=== PATIENT | female | born 1945 | race Hispanic/Latino ===

== ENCOUNTER → 2024-04-19 | Outpatient (CLI) | payer OTHER | END | disposition home or self-care (01) | LOC: RAH 08:49 | PROVIDERS: ATTEND Family Medicine | DX: R10.13 Epigastric pain (principal); Z90.49 Acquired absence of other specified parts of digestive tract | CPT/HCPCS: 76700 ==

== ENCOUNTER 2024-06-17 09:52 | Emergency (ER) | payer OTHER ==
[~2024-06-17] VITALS: Ht 154.9 cm; Wt 46.3 kg
[2024-06-17] MEDS: LIDOCAINE HCL 1% 20 ML VIAL ONE (11:16)
[2024-06-17] MEDS: TETANUS/DIPHTHERIA TOXOID [ADULT] 0.5 ML VIAL IM ONE (12:03)
[2024-06-17 12:25] VITALS: BP 154/68; PULSE 82; RESP 16; O2SAT 97
== END 2024-06-17 12:25 | disposition home or self-care (01) ==
LOC: EDH 09:52
DX: S01.81XA Laceration without foreign body of other part of head, initial encounter (principal); K21.9 Gastro-esophageal reflux disease without esophagitis; W01.0XXA Fall on same level from slipping, tripping and stumbling without subsequent striking against object, initial encounter; Y93.89 Activity, other specified; Y92.89 Other specified places as the place of occurrence of the external cause; Y99.8 Other external cause status
CPT/HCPCS: 70450; 72125; 90471; 90714

== ENCOUNTER → 2024-07-28 | Outpatient (CLI) | payer OTHER ==
[~2024-07-28] MED LIST: ASPI-1005 PO; ATOR40TA69 PO; CLOP-31 PO; IOHEXOL 350 MG/ML 100ML INFUS..BTL IV ONE; ISOS30TA92 PO; MACR100 PO; METO25 PO; NITR0.4T50 SL; OMEP20CA12 PO; metoPROLOL tartRATE 1 MG/ML 5ML VIAL IV ONE
== END | disposition home or self-care (01) ==
LOC: RAH 12:19
PROVIDERS: ATTEND Internal Medicine Cardiovascular Disease
DX: R07.9 Chest pain, unspecified (principal)
CPT/HCPCS: 75574; J3490; Q9967